=== PATIENT | male | born 1975 | race Caucasian/White ===

== ENCOUNTER 2021-08-22 02:07 | Outpatient (CLI) | payer OTHER, SELFPAY ==
[2021-08-23 09:30] LABS: HBs Antibody, Quant >1000.0 mIU/mL (See Note); Hepatitis B Surface Ab Positive (See Note)
[2021-08-23 10:21] LABS: Hep B Core Antibody Negative (Negative)
[2021-08-23 11:02] LABS: Varicella IgG Antibody Positive (See Note)
[2021-08-23 11:06] LABS: Measles IgG Antibody Negative (See Note)
[2021-08-23 11:09] LABS: Mumps Antibody IgG Positive (See Note)
[2021-08-23 11:11] LABS: Rubella IgG Ab (UVM) Positive (See Note)
== END 2021-08-22 02:08 | disposition home or self-care (01) ==
LOC: LBO 02:07
PROVIDERS: Family Medicine; Visit Provider Nurse Practitioner Family
DX: Z28.9 Immunization not carried out for unspecified reason (principal); Z11.59 Encounter for screening for other viral diseases; Z01.84 Encounter for antibody response examination
CPT/HCPCS: 36415; 86704; 86706; 86787; 86735; 86762; 86765

== ENCOUNTER 2022-12-07 22:54 | Emergency (ER) | payer BC, SELFPAY ==
[2022-12-07 22:53] VITALS: BP 127/73; PULSE 69; RESP 16; TEMP 36.6; O2SAT 100
--- NOTE | 2022-12-07 23:19 | W.ED.GENAD ---
Discharge Plan Disposition Patient Disposition: Home Condition: Improving Discharge Details Clinical Impression: Viral gastroenteritis Primary Care Provider: Sedrick Syed ED Provider: To Carpenter Meds and New Rx's Prescriptions: New ondansetron HCl 4 mg tablet 4 mg PO Q8H 5 Days Qty: 15 0RF Continued epinephrine [EpiPen 2-Chris] 0.3 mg/0.3 mL auto-injector 0.3 mg IM ONCE Rx Instructions: as a single dose; may repeat once acyclovir 800 mg tablet 800 mg PO QID Qty: 28 0RF Rx Instructions: while awake; give 4 doses in 24 hours x 3 days at first sign of outbreak finasteride [Propecia] 1 mg tablet 1 mg PO DAILY Qty: 90 3RF Discharge Instructions Instructions: Gastroenteritis (ED) Discharge Data Discharge Physician: To Carpenter Medical Decision Making MDM: Summary: Patient presents to the emergency department complaining of nausea vomiting diarrhea he received IV fluids for he seems dehydrated Labs were obtained which shows elevation of the BUN to creatinine ratio hyponatremia signs of dehydration otherwise unremarkable. Data Review Analysis All the data on this patient was reviewed by me including laboratory and imaging studies as well as bedside studies performed by me Independent review of Studies Imaging Lab: Elevation of the BUN to creatinine ratio which shows dehydration and hyponatremia Risk Stratification: Patient with viral gastroenteritis received IV fluids and Zofran with much improvement Differential Diagnosis: 1. Viral gastroenteritis 2. Colitis 3. 4. 5. Consultants: Shared disposition: Patient feels better and will be discharged home on Zofran in the care of his he is to drink Gatorade and nondairy products Impression: Lab Data Lab results reviewed: Yes I reviewed the patient's lab results. HPI General Date/Time Provider Initiated Documentation: 12/07/22 23:19. HPI Narrative: Patient presents emergency department complaining of 6 hours of nausea vomiting and profuse watery diarrhea. States he cannot take nothing down. Denies abdominal pain Related Data Home Medications Medication Instructions Recorded Confirmed epinephrine 0.3 mg/0.3 mL 0.3 mg IM ONCE 08/29/21 10/15/22 injection, auto-injector (EpiPen 2-Chris) acyclovir 800 mg tablet 800 mg PO QID #28 tabs 09/05/21 10/15/22 finasteride 1 mg tablet (Propecia) 1 mg PO DAILY alopecia #90 tabs 05/11/22 10/15/22 ondansetron HCl 4 mg tablet 4 mg PO Q8H 5 days #15 tabs 12/08/22 Previous Rx's Medication Instructions Recorded acyclovir 800 mg tablet 800 mg PO QID #28 tabs 09/05/21 finasteride 1 mg tablet (Propecia) 1 mg PO DAILY alopecia #90 tabs 05/11/22 ondansetron HCl 4 mg tablet 4 mg PO Q8H 5 days #15 tabs 12/08/22 Allergies Allergy/AdvReac Type Severity Reaction Status Date / Time bee AdvReac Unknown Skin Rash Uncoded 10/15/22 15:02 General Stated Complaint: Nausea/Vomit/Diar OLGA: 3 Review of Systems Narrative: Review of Systems: Constitutional: No fevers, chills, sweats Eye: No recent visual problems ENT: No ear pain, nasal congestion, sore throat Respiratory: No shortness of breath, cough Cardiovascular: No Chest pain, palpitations, syncope Genitourinary: No hematuria Kenan/Lymph: Negative for bruising tendency, swollen lymph glands Endocrine: Negative for excessive thirst, excessive hunger Musculoskeletal: No back pain, neck pain, joint pain, muscle pain, decreased range of motion Integumentary: No rash, pruritus, abrasions Neurologic: Alert & oriented X 4 Psychiatric: No anxiety, depression PFSH All Active Problems (Updated 12/08/22 @ 00:27 by To Carpenter MD) Viral gastroenteritis (Acute) Alopecia (Chronic) 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 Social History Smoking/Tobacco Use Status: Never Second Hand Exposure: No Smoking risk assessment performed?: Yes Alcohol Intake: current Alcohol Intake frequency: a few times a month Alcohol type: beer Drug use: Never Substance use type: does not use Caregiver/Support person: No Household members: spouse and children Housing: house Communication Needs: None Pets and animals: Yes Pets and animals: cat(s) and dog(s) Sexually active: Yes Do you think of yourself as: straight/heterosexual Current gender identity: male What is your relationship status?: How often do you talk on the phone with friends or family?: three or more times per week How often do you get together with friends or relatives?: three or more times per week How often do you attend jewish or zoroastrian services?: 1-3 times per year Do you belong to any clubs or organized social groups?: yes Panel score (0-1 are the most socially isolated patients): 3 What type of physical activity do you participate in: bicycling, weight lifting, running and yoga Special kirsten needs: No Seatbelt use: always Helmet use: Yes Helmet use: always 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 Exam Narrative Exam Narrative: Exam; vitals signs as reported above normal Constitutional; In no acute distress, afebrile General: cooperative, healthy appearing, comfortable and no acute distress HEENT: Head: normal to inspection, no palpable skull fracture and normocephalic atraumatic dry mucous membranes Eyes: : appearance normal, both eyes and all related structures EOM intact bilaterally Pupils: PERRL : conjunctiva normal Direct ophthalmoscopy: normal light reflex, normal conjunctiva, normal visual acuity Ears: Normal TM, normal external canal Neck no JVD, supple non tender Neck: normal visual inspection, full ROM and no lymphadenopathy Chest: normal inspection of the chest Respiratory : normal respiratory effort and able to speak in complete sentences no wheezing no rales Cardio Rate: regular rate, rhythm: regular rhythm normal heart sounds S1 and S2 no murmurs, gallops, or rubs GI : normal to inspection, normal bowel sounds, soft, non tender, non distended, no organomegaly Back/Spine/ no CVA tenderness Thoracic/Lumbar Spine: no tenderness or deformities Skin no rashes or lesions Neuro: patient alert and no meningeal signs, Cranial Nerves: CN's II-XI intact bilaterally, Cognition: normal cognition, Speech: speech normal, Gait: normal gait, Depp tendon reflexes normal 2+ muscle strength 5/5 bilaterally Extremities, no edema, full range of motion, normal strength Course Vital Signs Vital signs: Vital Signs Temperature 36.6 C 09/01/23 22:53 Pulse 69 12/07/22 22:53 Respiratory Rate 16 12/07/22 22:53 Blood Pressure 127/73 12/07/22 22:53 Pulse Oximetry 100 12/07/22 22:53 Temperature 36.6 C 12/07/22 22:53 Temperature Source Oral 12/07/22 22:53 Pulse 69 12/07/22 22:53 Respiratory Rate 16 12/07/22 22:53 Respiratory Effort Normal 12/07/22 23:08 Blood Pressure 127/73 12/07/22 22:53 Pulse Oximetry 100 12/07/22 22:53 Oxygen Delivery Method Room Air 12/07/22 22:53 Oxygen Flow Rate 0 12/07/22 22:53 Pain Level 0 12/07/22 22:53 Vital Signs & Lab Results Vital Signs Most Recent Vital Signs: Most Recent Vital Signs Temp Pulse Resp BP Pulse Ox 36.6 C 69 16 127/73 100 12/07/22 22:53 12/07/22 22:53 12/07/22 22:53 12/07/22 22:53 12/07/22 22:53 Point of Care Results Nursing Point of Care Results: No Data to Display Lab Results 12/07/22 22:46 12/07/22 22:46 Blood Type / Crossmatch: No Data to Display Complete Blood Count: White Blood Count 9.34 10^3/uL (4.4-10.8) 12/07/22 22:46 Red Blood Count 5.60 10^6/uL (4.36-5.78) 12/07/22 22:46 Hemoglobin 16.5 g/dL (13.5-17.5) 12/07/22 22:46 Hematocrit 48.1 % (40.0-50.0) 12/07/22 22:46 Platelet Count 265 10^3/uL (130-400) 12/07/22 22:46 Complete Metabolic Panel: Sodium 131 mmol/L (136-145) L 12/07/22 22:46 Potassium 3.9 mmol/L (3.5-5.1) 12/07/22 22:46 Chloride 99 mmol/L (98-107) 12/07/22 22:46 Carbon Dioxide 25.0 mmol/L (21.0-32.0) 12/07/22 22:46 BUN 31 mg/dL (7-18) H 12/07/22 22:46 Creatinine 1.4 mg/dL (0.70-1.30) H 12/07/22 22:46 Est GFR (CKD-EPI 2020) 62.39 (mL/min/1.73m2) 12/07/22 22:46 Calcium 10.0 mg/dL (8.5-10.1) 12/07/22 22:46 Albumin 4.3 g/dL (3.4-5.0) 12/07/22 22:46 Glucose 139 mg/dL (74-106) H 12/07/22 22:46 Liver Function Panel: Alanine Aminotransferase (ALT/SGPT) 57 U/L (16-63) 12/07/22 22:46 Aspartate Amino Transf (AST/SGOT) 43 U/L (15-37) H 12/07/22 22:46 Coagulation Panel: No Data to Display Cardiac Panel: No Data to Display Arterial Blood Gas: No Data to Display Venous Blood Gas: No Data to Display Pancreas Panel: Lipase 29 U/L (16-77) 12/07/22 22:46 Thyroid Panel: No Data to Display Infectious Disease: No Data to Display Blood Cultures: No Data to Display Toxicology Panel: No Data to Display
[2022-12-07] MEDS: Normal Saline 1,000 ML 1000 ML IV (23:32)
[2022-12-07] MEDS: Ondansetron 4 MG/2 ML VIAL IVP (23:32)
[2022-12-07] MEDS: MORPHine 4 MG/ML SYR IVP (23:32)
[2022-12-07 23:36] LABS: Abs Immature Grans 0.03 10^3/uL (0.0-0.06); Absolute Basophil Count 0.02 10^3/uL (0.0-0.2); Absolute Eosinophil Count 0.02 10^3/uL (0.0-0.7); Absolute Lymphocyte Count 0.51 10^3/uL (1.2-3.4); Absolute Monocyte Count 0.41 10^3/uL (0.1-0.8); Absolute Neutrophil Count 8.35 10^3/uL (1.2-6.7); Basophils % 0.2; Eosinophils % 0.2; HCT 48.1 % (40.0-50.0); HGB 16.5 g/dL (13.5-17.5); Immature Grans % 0.3; Lymphocytes % 5.5; MCH 29.5 pg (27.0-33.0); MCHC 34.3 % (32.0-36.0); MCV 86 fL (80-95); MPV 8.6 fL (8.0-11.0); Monocytes % 4.4; Neutrophils % 89.4; Platelet Count 265 10^3/uL (130-400); RDW 11.5 % (11.8-14.1); RDW-SD 35.8 fL; WBC 9.34 10^3/uL (4.4-10.8)
[2022-12-07 23:57] LABS: ALT 57 U/L (16-63); AST 43 U/L (15-37); Albumin 4.3 g/dL (3.4-5.0); Alkaline Phosphatase 71 U/L (46-116); BUN 31 mg/dL (7-18); Bilirubin, Total 0.9 mg/dL (0.2-1.0); CREATININE 1.4 mg/dL (0.70-1.30); Chloride 99 mmol/L (98-107); Estimated GFR 62.39 (mL/min/1.73m2); Glucose 139 mg/dL (74-106); Lipase 29 U/L (16-77); Potassium 3.9 mmol/L (3.5-5.1); Sodium 131 mmol/L (136-145); Total Protein 7.7 g/dL (6.4-8.2)
[2022-12-08 00:48] VITALS: BP 140/75; PULSE 82; RESP 16; O2SAT 99
--- NOTE | 2022-12-08 00:48 | NUR.NOTE ---
Nursing Note: Pt provided soren ellyn for PO challenge. Pt states he is still nausous but is able to hold fluids down. notified.
[2022-12-08] MEDS: Ondansetron O.D.T. 4 MG TABEF PO ×2 (00:57)
== END 2022-12-08 01:02 | disposition home or self-care (01) ==
PROVIDERS: Emergency Provider Emergency Medicine Emergency Medical Services; PCP Nurse Practitioner Family
DX: A08.4 Viral intestinal infection, unspecified (principal)
CPT/HCPCS: 36415; 80053; 83690; 96361; 96374; 96375; 99284; 85025; J2270; J2405

== ENCOUNTER 2023-08-20 11:00 | Outpatient (CLI) | payer BC, SELFPAY ==
--- NOTE | 2023-08-20 10:00 | DI.RAD_ITS ---
Exam(s) XR SHOULDER RT COMPLETE 2+V EXAM: XR SHOULDER RT COMPLETE 2+V CLINICAL HISTORY: RIGHT SHOULDER PAIN. TECHNIQUE: 2D digital imaging was performed. COMPARISON: CR RIGHT SHOULDER COMPLETE from 01/17/2015 FINDINGS: Two views No evidence of fracture or dislocation nor abnormal soft tissue calcifications. No joint space narro wing in the glenohumeral joint. Moderate degenerative changes are evident in the AC joint. No calci fications in non diminished subacromial space. Bone density normal. No osseous lesions. IMPRESSION: As above. DATA REPOSITORY: RADIATION DOSE DELIVERED:
== END 2023-08-20 11:01 | disposition home or self-care (01) ==
LOC: DIORS 11:00
PROVIDERS: PCP Nurse Practitioner Family; Visit Provider Student in an Organized Health Care Education/Training Program
DX: M25.511 Pain in right shoulder (principal)
CPT/HCPCS: 73030

== ENCOUNTER → 2023-09-06 00:05 | Outpatient (CLI) | payer BC, SELFPAY ==
--- NOTE | 2023-09-06 07:00 | DI.MRI_ITS ---
Exam(s) MR UPPER JOINT RT WO EXAM: MR UPPER JOINT RT WO CLINICAL HISTORY: R SHOULDER PAIN, rt rotator cuff tear, M75.101. TECHNIQUE: Multiplanar multisequence MRI was performed. COMPARISON: Plain films 20 Aug 2023 FINDINGS: BONES: There is no fracture or contusion pattern. Degenerative cyst in superior humeral head. JOINTS:The acromioclavicular joint shows inferior spurring. Spurring at the tip of the acromion. Th e glenohumeral joint is normal. TENDONS: Supraspinatus: High signal the fibers of the stent sec response tendon focal tear anteriorly and dist ally. Infraspinatus: Unremarkable. Subscapularis: Unremarkable. Teres Minor: Unremarkable. Biceps and Eustace: Unremarkable. MUSCLES: Unremarkable. GLENOID LABRUM: Unremarkable on this noncontrast examination. SOFT TISSUES: Unremarkable. OTHER: Subacromial and subdeltoid bursae shows a minimal amount of fluid.. Fluid in subcoracoid bursa. IMPRESSION: Partial tear of the anterior supraspinatus tendon. Degenerative changes with inferior spurring at th e AC joint and tip of the acromion. DATA REPOSITORY:
== END ==
PROVIDERS: PCP Nurse Practitioner Family; Visit Provider Student in an Organized Health Care Education/Training Program
DX: M75.111 Incomplete rotator cuff tear or rupture of right shoulder, not specified as traumatic (principal)
CPT/HCPCS: 73221

== ENCOUNTER 2024-06-12 09:26 | Outpatient (CLI) | payer BC, SELFPAY ==
--- NOTE | 2024-06-12 09:15 | DI.RAD_ITS ---
Exam(s) XR ELBOW RT COMPLETE EXAM: XR ELBOW RT COMPLETE CLINICAL HISTORY: no improvement with PT, isidoro elbow joint pain, M25.521, M25.522. TECHNIQUE: 2D digital imaging was performed. Three views. COMPARISON: CR XR ELBOW LT COMPLETE from 06/12/2024 FINDINGS: BONES: No acute fracture is present. No bony destructive lesion is seen. Other small ossicle adjacen t to the medial epicondyle. JOINTS: The elbow is normally aligned. No joint effusion is seen. The joint spaces are maintained. There is mild periarticular spurring. SOFT TISSUE: Normal. IMPRESSION: Minimal degenerative changes. DATA REPOSITORY: RADIATION DOSE DELIVERED:
--- NOTE | 2024-06-12 09:15 | DI.RAD_ITS ---
Exam(s) XR ELBOW LT COMPLETE EXAM: XR ELBOW LT COMPLETE CLINICAL HISTORY: no improvement with PT, isidoro elbow joint pain, M25.521, M25.522. TECHNIQUE: 2D digital imaging was performed. Three views. COMPARISON: CR XR ELBOW RT COMPLETE from 06/12/2024 FINDINGS: BONES: No acute fracture is present. No bony destructive lesion is seen. JOINTS: The elbow is normally aligned. No joint effusion is seen. Minimal periarticular spurring. Joint spaces are maintained. SOFT TISSUE: Normal. IMPRESSION: Mild degenerative changes. DATA REPOSITORY: RADIATION DOSE DELIVERED:
== END 2024-06-12 09:46 ==
LOC: DI 09:30
PROVIDERS: PCP Nurse Practitioner Family; Visit Provider Nurse Practitioner Family
DX: M25.521 Pain in right elbow (principal); M25.522 Pain in left elbow
CPT/HCPCS: 73080

== ENCOUNTER 2024-12-07 14:08 | Inpatient (IN) | payer BC, SELFPAY ==
[2024-12-07] VITALS (44 sets, daily range): BP systolic 102–149; BP diastolic 57–87; PULSE 50–78; RESP 10–22; TEMP 36.7–37.1; O2SAT 86–100
--- NOTE | 2024-12-07 14:00 | DI.CT_ITS ---
Exam(s) CT THORACIC LUMBAR SPINE REC CT THORAX ABD/PEL CTA EXAM: CT THORAX ABD/PEL CTA CLINICAL HISTORY: Trauma. TECHNIQUE: Imaging Protocol: Axial CT angiography was performed with multi- slice acquisition and multi-planar and/or 3D reconstructions. Lung Computer Aided Detection (CAD) was utilized. CONTRAST MATERIAL: Intravenous: Omnipaque 350 contrast volume:100 mL Oral: No COMPARISON: CT CT THORACIC LUMBAR SPINE REC from 12/07/2024 FINDINGS: CHEST: Tracheobronchial tree: Patent where visualized. There is no evidence of bronchiectasis. Pulmonary parenchyma: There is dependent atelectasis in both lower lobes and the lingula. No architectural distortion. Pulmonary Arteries: No evidence of filling defect to suggest pulmonary emboli. Mediastinum and Kristina: No dominant adenopathy or fluid collection. The esophagus is unremarkable. Visualized thyroid: Unremarkable. Pleura: There is a small left pleural effusion. There is no right pleural effusion. There is a small to moderate-sized left pneumothorax. There is no right pneumothorax. Heart: The heart is not dilated. No coronary artery calcifications are seen. No pericardial effusion. Aorta: The ascending thoracic aorta measures 4.3 x 4.2 cm. Soft Tissues: There is subcutaneous air along the left chest wall. Bones: There is a comminuted displaced fracture of the midshaft of the left clavicle. There is a nondisplaced fracture of the posterior aspect of the left 1st rib. There are mildly displaced fractures involving the posterolateral aspects of the 4th, 5th and 6th ribs. Thoracic spine recons: Age-appropriate degenerative changes are seen in the thoracic spine.There are no acute fractures or subluxations. Lumbar spine recons: Age-appropriate degenerative changes are seen in the lumbar spine. No acute fractures or subluxations are present. ABDOMEN AND PELVIS: Abdomen: Celiac axis/mesenteric arteries: No evidence of occlusion or significant stenosis. Renal Arteries: No evidence of occlusion or significant stenosis. There is a single renal artery perfusing each kidney. Aorta: No evidence of occlusion or significant stenosis. No aneurysm or dissection. Pelvis: Iliac Arteries: No evidence of occlusion or significant stenosis. Common Femoral Arteries: No evidence of occlusion or significant stenosis. ABDOMEN: Liver: Normal density. No measurable mass. Portal, superior mesenteric and splenic veins: Unremarkable. Gallbladder and Biliary Tract: No radiodense calculus or dilation. Pancreas: Normal density, no abnormal calcifications or inflammatory process. Spleen: Normal. Adrenals: No masses seen. Kidneys: Normal size, contour and axis. There is no obstructive uropathy. No masses seen. Bowel: No obstruction or bowel wall thickening. There is no evidence to suggest appendicitis. Peritoneal Cavity: No ascites, collection or mesenteric inflammatory response. No free air. Lymph Nodes: Within normal limits. Bones: Within normal limits for the patient's age. Soft Tissues: Unremarkable. PELVIS: Bladder: Symmetric distention, no gross wall thickening. Reproductive Organs: Unremarkable as visualized. Lymph Nodes: Within normal limits. Bones: Within normal limits for the patient's age. IMPRESSION: 1. Multiple left rib fractures some of which are displaced. Comminuted displaced fracture of the midshaft of the left clavicle. 2. Small to moderate left pneumothorax. 3. Small left pleural effusion. 4. Atelectatic changes seen in both lower lobes in the left lingula. 5. No acute fracture or subluxations are seen in the thoracic or lumbar spine. 6. No acute abdominal or pelvic organ injury. 7. Ascending thoracic aorta measures 4.3 x 4.2 cm. There is no evidence of dissection. 8. There is no evidence of a pulmonary embolism. 9. No evidence of abdominal aortic aneurysm or dissection. 10. The preliminary [facility] report was reviewed. RADIATION DOSE DELIVERED: 1,636.95mGy.cm Total DLP DATA REPOSITORY: All CT scans at this facility are submitted to the National Radiology Data Registry (NRDR) Dose Index Registry (DIR) with the [employer] ([employer]). RADIATION OPTIMIZATION: All CT scans at this facility use at least one of these dose optimization techniques: automated exposure control; mA and/or kV adjustment per patient size (includes targeted exams where dose is matched to clinical indication); or iterative reconstruction.
--- NOTE | 2024-12-07 14:00 | DI.CT_ITS ---
Exam(s) CT HEAD CERVICAL SPINE WO EXAM: CT HEAD CERVICAL SPINE WO CLINICAL HISTORY: Trauma. TECHNIQUE: Imaging Protocol: Axial computed tomography images with coronal and sagittal reformatted images were created and reviewed COMPARISON: No exams were available for comparison FINDINGS: CT Head: Ventricles and Extra axial spaces: Normal in size and morphology for the patient's age. Hemorrhage: None. Cerebral parenchyma: Normal. Midline shift: None. Brainstem/Cerebellum: Normal. Calvarium: Normal. Visualized Paranasal sinuses/Mastoids: Clear. Soft Tissues: There are several tiny radiodensities in the subcutaneous tissues of the scalp. These may reflect foreign bodies. CT Cervical Spine: Bones: There is a nondisplaced fracture of the posterior aspect of the left 1st rib. Age-appropriate degenerative changes are seen in the spine. Soft Tissues: Unremarkable. Lung Apices: There is an apical pneumothorax present. Subcutaneous emphysema is seen in the posterior soft tissues of the chest. IMPRESSION: 1. No acute intracranial process. 2. No acute fracture or subluxation in the cervical spine. 3. Left 1st rib fracture. 4. Left apical pneumothorax. 5. Radiopaque densities in the subcutaneous tissues in the scalp which may reflect foreign bodies. Please correlate with physical exam. 6. The preliminary [facility] report was reviewed. RADIATION DOSE DELIVERED: 1,530.05mGy.cm Total DLP DATA REPOSITORY: All CT scans at this facility are submitted to the National Radiology Data Registry (NRDR) Dose Index Registry (DIR) with the [employer] ([employer]). RADIATION OPTIMIZATION: All CT scans at this facility use at least one of these dose optimization techniques: automated exposure control; mA and/or kV adjustment per patient size (includes targeted exams where dose is matched to clinical indication); or iterative reconstruction.
--- NOTE | 2024-12-07 14:15 | DI.RAD_ITS ---
Exam(s) XR SHOULDER LT COMPLETE 2+V XR CLAVICLE LT EXAM: XR CLAVICLE LT and XR shoulder LT complete CLINICAL HISTORY: Trauma TECHNIQUE: 2D digital imaging was performed of the left shoulder and clavicle. Six images were obtained. AP, Grashey, Y and axial views were obtained. COMPARISON: CR,XR XR SHOULDER LT COMPLETE 2+V from 12/07/2024 FINDINGS: BONES: There is an acute mildly displaced comminuted fracture of the midshaft of the left clavicle. There are mildly displaced fractures involving the lateral aspects of the left 4th, 5th and 6th ribs. No bony destructive lesion is seen. JOINTS: No dislocation present. The acromioclavicular and glenohumeral joints are intact. There are mild degenerative changes seen at the acromioclavicular joint. SOFT TISSUE: There is a small amount of subcutaneous air along the left chest wall. IMPRESSION: 1. Comminuted mildly displaced fracture of the midshaft of the left clavicle. 2. Mildly displaced fractures involving the lateral aspects of the 4th, 5th and 6th ribs. 3. Small amount of subcutaneous emphysema along the left chest wall. 4. The preliminary [facility] report was reviewed. DATA REPOSITORY: RADIATION DOSE DELIVERED:
--- NOTE | 2024-12-07 14:15 | DI.RAD_ITS ---
Exam(s) XR PORTABLE CHEST AP EXAM: XR PORTABLE CHEST AP CLINICAL HISTORY: trauma TECHNIQUE: 2D digital imaging was performed of the chest. One image was obtained. An AP view was obtained. COMPARISON: No exams were available for comparison FINDINGS: MEDIASTINUM: Normal. HEART: Normal. PULMONARY VASCULATURE: Normal. LUNGS: Clear. PLEURAL SPACE: There is no pleural effusion. There is no right pneumothorax. There is subcutaneous air along the left lateral chest wall adjacent to the rib fractures. The findings are concerning for a in left pneumothorax. No pneumothorax is visualized on this examination but is CT scan of the chest is recommended for further evaluation. There is an opacity in the right lung base. The left lung is clear. BONE:Within normal limits for the patient's age. There is a comminuted mildly displaced fracture involving the midshaft of the left clavicle. There are fractures involving the lateral aspects of the 3rd through 6th left ribs. OTHER FINDINGS:Normal. IMPRESSION: 1. Comminuted mildly displaced left mid clavicular fracture. 2. Mildly displaced fractures involving the left 3rd through 6th ribs. 3. Subcutaneous air along the left chest wall. This in conjunction with the rib fractures are suspicious for a in pneumothorax. No discernible pneumothorax is seen on this examination, however a CT scan is recommended for further evaluation. A very small pneumothorax cannot be excluded. 4. Left basilar opacity. This may represent a pulmonary contusion or atelectasis. DATA REPOSITORY: RADIATION DOSE DELIVERED:
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
[2024-12-07] MEDS: HYDROmorphone 2 MG/ML SYR 1 MG IVP ×3 (14:23→19:59)
[2024-12-07 14:27] LABS: Abs Immature Grans 0.03 10^3/uL (0.0-0.06); HCT 42.0 % (40.0-50.0); HGB 14.2 g/dL (13.5-17.5); Immature Grans % 0.4 %; MCH 29.3 pg (27.0-33.0); MCHC 33.8 % (32.0-36.0); MCV 87 fL (80-95); MPV 8.2 fL (8.0-11.0); Platelet Count 224 10^3/uL (130-400); RBC 4.84 10^6/uL (4.36-5.78); RDW 11.5 % (11.8-14.1); RDW-SD 36.5 fL; WBC 7.54 10^3/uL (4.4-10.8)
[2024-12-07 14:41] LABS: INR 1.1 (0.9-1.1); PTT Activated 22.5 sec (20.6-30.2); Prothrombin Time 10.7 sec (9.1-11.1)
[2024-12-07 14:43] LABS: ALT 53 U/L (16-63); AST 42 U/L (15-37); Albumin 4.0 g/dL (3.4-5.0); Alkaline Phosphatase 71 U/L (46-116); Anion Gap 7.1 mmol/L (3-11); BUN 24 mg/dL (7-18); Bilirubin, Total 0.6 mg/dL (0.2-1.0); CO2 30.9 mmol/L (21.0-32.0); Calcium 9.4 mg/dL (8.5-10.1); Chloride 103 mmol/L (98-107); Estimated GFR 56.72 (mL/min/1.73m2); Glucose 138 mg/dL (74-106); Lipase 28 U/L (<78); Potassium 4.0 mmol/L (3.5-5.1); Sodium 141 mmol/L (136-145); Total Protein 7.1 g/dL (6.4-8.2)
[2024-12-07] MEDS: Normal Saline Flush 10 ML SYR IVP ×2 (14:57→21:41)
[2024-12-07] MEDS: Normal Saline - Diluent 50 ML VIAL IJ (14:58)
[2024-12-07] MEDS: Omnipaque 350 MG/ML 100 ML BTL IJ (14:58)
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
--- NOTE | 2024-12-07 16:30 | DI.RAD_ITS ---
Exam(s) XR PORTABLE CHEST AP EXAM: XR PORTABLE CHEST AP CLINICAL HISTORY: Reassess pneumothorax TECHNIQUE: 2D digital imaging was performed. COMPARISON: CT CT THORAX ABD/PEL CTA from 12/07/2024 CR XR PORTABLE CHEST AP from 12/07/2024 FINDINGS: LUNGS: Small left apical pneumothorax is appears have slightly increased when compared with the previous exam. Left basilar densities, likely atelectasis. Lungs are not well inflated. HEART: Heart side magnified by technique and lack of inspiration. AORTA: Normal diameter. BONES: Multiple left lateral rib fractures. Soft tissues: Unremarkable air outside the left chest wall. Overlying monitoring leads. IMPRESSION: Slight interval increase in size of left apical pneumothorax. Multiple left rib fractures. Left basilar atelectasis. The preliminary [facility] report was reviewed. DATA REPOSITORY: RADIATION DOSE DELIVERED:
[2024-12-07] MEDS: Normal Saline 1,000 ML 1000 ML IV (16:34)
[2024-12-07] MEDS: ACETAMINOPHEN 1,000 MG/100 ML BAG 400 MG IVPB (16:59)
[2024-12-07] MEDS: Ketorolac 15 MG/ML VIAL IVP (17:00)
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
[2024-12-07] MEDS: Enoxaparin 40 MG/0.4 ML SYR SC (19:59)
[2024-12-07] MEDS: Docusate Sodium 100 MG CAP PO (19:59)
[2024-12-07 22:12] LABS: Glucose Negative (Negative)
[2024-12-08] VITALS (7 sets, daily range): BP systolic 108–132; BP diastolic 71–85; PULSE 52–57; RESP 16–20; TEMP 36–36.7; O2SAT 96–100
[2024-12-08] MEDS: MORPHine 2 MG/ML SYR IVP ×3 (03:42→12:44)
--- NOTE | 2024-12-08 05:30 | DI.RAD_ITS ---
Exam(s) XR PORTABLE CHEST AP EXAM: XR PORTABLE CHEST AP CLINICAL HISTORY: follow up left pneumothorax TECHNIQUE: 2D digital imaging was performed. COMPARISON: CR,XR XR PORTABLE CHEST AP from 12/07/2024 CR XR PORTABLE CHEST AP from 12/07/2024 FINDINGS: LUNGS: Small left apical pneumothorax which has increased slightly in size when compared the previous exam. Mild left basilar atelectasis.. HEART: Normal size. AORTA: Normal diameter. BONES: Multiple left rib fractures again noted Soft tissues: Small amount of air seen outside the left chest wall. IMPRESSION: Mild interval increase in size of left apical pneumothorax. DATA REPOSITORY: RADIATION DOSE DELIVERED:
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
[2024-12-08 06:48] LABS: HCT 40.1 % (40.0-50.0); HGB 13.5 g/dL (13.5-17.5); MCH 29.6 pg (27.0-33.0); MCHC 33.7 % (32.0-36.0); MCV 88 fL (80-95); MPV 8.3 fL (8.0-11.0); Platelet Count 198 10^3/uL (130-400); RBC 4.56 10^6/uL (4.36-5.78); RDW 11.7 % (11.8-14.1); RDW-SD 37.3 fL; WBC 7.59 10^3/uL (4.4-10.8)
[2024-12-08 07:04] LABS: Anion Gap 4.5 mmol/L (3-11); BUN 21 mg/dL (7-18); CO2 30.5 mmol/L (21.0-32.0); Calcium 8.9 mg/dL (8.5-10.1); Chloride 104 mmol/L (98-107); Estimated GFR 82.29 (mL/min/1.73m2); Glucose 93 mg/dL (74-106); Magnesium 2.0 mg/dL (1.8-2.4); Potassium 3.8 mmol/L (3.5-5.1); Sodium 139 mmol/L (136-145)
[2024-12-08] MEDS: Normal Saline Flush 10 ML SYR IVP ×2 (07:25→20:38)
[2024-12-08] MEDS: Ondansetron 4 MG/2 ML VIAL IVP (07:25)
--- NOTE | 2024-12-08 07:32 | DI.VRAD_ITS ---
PROCEDURE INFORMATION: Exam: XR Chest Exam date and time: 12/08/2024 7:25 AM Age: 49 years old Clinical indication: Condition or disease; Lung condition and disease; Pneumothorax; F/u trauma - pneumo TECHNIQUE: Imaging protocol: Radiologic exam of the chest. Views: 1 view. COMPARISON: CR XR PORTABLE CHEST AP 12/07/2024 5:08 PM FINDINGS: Lungs: No focal consolidation seen. Pleural spaces: Slightly increased left apical pneumothorax. Heart/Mediastinum: Cardiac silhouette magnified by AP technique. Bones/joints: Multiple left rib fractures. IMPRESSION: Slightly increased left apical pneumothorax. Dictated and Authenticated by: Linette Glass MD. Orderin Brigdet Rockwell MD
[2024-12-08] MEDS: Ibuprofen 800 MG TAB PO ×2 (09:09→16:13)
[2024-12-08] MEDS: HYDROcodone 5/Acetaminophen 325 TAB PO ×3 (09:09→20:37)
[2024-12-08] MEDS: Docusate Sodium 100 MG CAP PO ×2 (09:09→20:37)
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
--- NOTE | 2024-12-08 13:15 | DI.RAD_ITS ---
Exam(s) XR CLAVICLE LT EXAM: XR CLAVICLE LT CLINICAL HISTORY: f/u Lt clavicle fx TECHNIQUE: 2D digital imaging was performed. Two views COMPARISON: CR,XR XR CLAVICLE LT from 12/07/2024 CR,XR XR SHOULDER LT COMPLETE 2+V from 12/07/2024 CR,XR XR PORTABLE CHEST AP from 12/08/2024 FINDINGS: BONES: Comminuted fracture of the mid to distal clavicle now with overriding of fracture fragments, with increased displacement compared with the previous exam. Left upper rib fractures are visible. No bony destructive lesion is seen. JOINTS: AC joint not widened. SOFT TISSUE: There is a small left apical pneumothorax. IMPRESSION: Increased displacement of mid to distal comminuted clavicle fracture. DATA REPOSITORY: RADIATION DOSE DELIVERED:
--- NOTE | 2024-12-08 14:38 | PGE_ITS ---
Date of Service Date of service: 12/08/24 Time of Service: 14:38 Assessment and Plan Assessment and plan (1) Pneumothorax, left: Status: Acute Assessment and plan: There has been a little bit of progression of the pneumothorax on the left side, although the quality of this x-ray is improved compared to previous, and he has been upright for a little bit longer. We will plan to repeat another chest x- ray tomorrow. I will consult the anesthesia service to see if there is any role for rib blocks to help with his pain. Will continue to trend to spirometry effort. Reassess the knee over the next few hours, and if necessary, we can get formal films tomorrow during his chest x-ray. Subjective Subjective Interval history since last seen: Raul says he is doing okay this afternoon. He has had some increased pain since he has been up out of bed, but he denies any significant dyspnea. He is only getting about 1000 mL on the spirometer, and this is limited by pain. Cough is weak. He has noted a little bit of pain on the left knee since he has been up and bearing weight on it. Exam Chest Other: Lung sounds are clear bilaterally, although the inspiratory effort is limited. There are no wheezes. I do not appreciate any significant subcutaneous emphysema. Extrem Other: Left knee is a little bit tender at the patella, but range of motion is normal. I do not appreciate an effusion on exam. Objective Last Vital Signs Temp 97.2 F L 12/08/24 11:15 Pulse 57 L 12/08/24 11:15 Resp 20 12/08/24 11:15 BP 115/73 12/08/24 11:15 Pulse Ox 96 12/08/24 11:15 Laboratory Results - last 24 hr 12/07/24 12/07/24 12/08/24 14:15 21:50 06:33 WBC 7.59 RBC 4.56 Hgb 13.5 Hct 40.1 MCV 88 MCH 29.6 MCHC 33.7 RDW 11.7 L Plt Count 198 MPV 8.3 PT 10.7 INR 1.1 APTT 22.5 Sodium 141 139 Potassium 4.0 3.8 Chloride 103 104 Carbon Dioxide 30.9 30.5 Anion Gap 7.1 4.5 BUN 24 H 21 H Creatinine 1.5 H 1.1 Est GFR (CKD-EPI 2021) 56.72 82.29 Glucose 138 H 93 Calcium 9.4 8.9 Magnesium 2.0 Total Bilirubin 0.6 AST 42 H ALT 53 Alkaline Phosphatase 71 Total Protein 7.1 Albumin 4.0 Lipase 28 Urine Color Yellow Urine Clarity Clear Urine pH 5.5 Ur Specific [place] 1.025 Urine Protein Negative Urine Ketones 15 H Urine Blood Negative Urine Nitrite Negative Urine Bilirubin Negative Urine Urobilinogen 0.2 Ur Leukocyte Esterase Negative Urine Glucose Negative ABO/Rh O Positive Antibody Screen NEGATIVE PAWSS Have you Been Recently Intoxicated or Drunk Within the Last 30 days?: No Have you Ever Experienced Previous Episodes of Alcohol Withdrawal?: No Have you ever Experienced Withdrawal Seizures?: No Have you ever Experienced Delirium Tremens(DT)s?: No Have you ever undergone Alcohol Rehabilitation Treatment (i.e, inpt ot outpatient treatment programs)?: No Have you ever Experienced Blackouts?: No Have you ever Combined Alcohol with other Downers within the last 90 days?: No Have you ever Combined Alcohol with any other Substance of Abuse during the last 90 days?: No Positive Blood Alcohol level on Presentation? [PCS.BAL]: No Evidence of Increased Autonomic Activity (i.e. HR>120, tremor, sweating, agitation, nausea)?: No Result: 0 Time Spent with Patient Time Spent with Patient: 35-49 minutes Time was spent: preparing to see the patient(eg.review tests), referring, communicating with other health career services assistant, indepentently interpreting results, counseling the patient and care coordination
--- NOTE | 2024-12-08 14:50 | W.ANESNERVE ---
Nerve Block Single Injection Procedure Date and Time Date Performed: 12/08/24 Procedure Start: 14:30 Location Where Procedure Performed Procedure Location: Med/Surg Reason Performed: Acute Pain Management Pain Diagnosis: Rib Pain (difficulty with inspiration/expiration/coughing/IS usage. ) Requesting Provider: Prateek Banks Timeout Performed Timeout Performed: Yes Monitoring Used ECG, Blood Pressure and SpO2 Sterility Sterility: Hand Hygiene, Surgical Cap, Surgical Mask, Sterile Gloves and Chlorhexidine Sedation Given During Procedure Sedation Given (Indicate Dose Given): No Sedation given Patient Mental Status Patient Mental Status: Awake Nerve Block 1st Nerve Block: Laterality: Left Block Type: Erector Spinae (Upper) Ultrasound Image Saved?: Yes Needle / Catheter Used: 100mm SonoPlex II Local Anesthetic Bolus (Indicate Dose Given): Lidocaine used for local infiltration of skin, Injected in 3-5ml increments after negative blood aspiration, Bupivacaine 0.25% Dose:: 20 mL and Exparel Dose:: 20 mL Additives (Indicate Dose Given): None Ultrasound: Sterile probe cover and gel used Nerve Stimulator: Not Used Paresthesia: None Procedure Tolerated: No Complications Procedure Outcome: Successful Procedure Comment: Discussed risks, benefits of regional anesthesia. No contraindications noted. Plan for RICA block. Performed By: Andrea King
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
[2024-12-08] MEDS: Enoxaparin 40 MG/0.4 ML SYR SC (20:38)
--- NOTE | 2024-12-09 | DI.RAD_ITS ---
Exam(s) XR KNEE LT 1V EXAM: XR KNEE LT 1V CLINICAL HISTORY: possible patella fx. TECHNIQUE: 2D digital imaging was performed of the left knee. One images were obtained. Merchant, views were obtained. COMPARISON: CR XR KNEE LT 2V AP,LAT from 12/09/2024 FINDINGS: BONES: Findings are most consistent with a nondisplaced fracture of the lateral aspect of the patella. IMPRESSION: Findings consistent with a nondisplaced fracture of the lateral patella. DATA REPOSITORY: RADIATION DOSE DELIVERED:
[2024-12-09 03:12] VITALS: BP 107/69; PULSE 58; RESP 16; TEMP 36; O2SAT 97
[2024-12-09] MEDS: HYDROcodone 5/Acetaminophen 325 TAB PO ×4 (03:31→22:39)
[2024-12-09 08:02] VITALS: BP 105/68; PULSE 55; RESP 19; TEMP 36.3; O2SAT 98
[2024-12-09] MEDS: Docusate Sodium 100 MG CAP PO ×2 (08:04→21:09)
[2024-12-09] MEDS: Ibuprofen 800 MG TAB PO ×3 (08:04→21:08)
[2024-12-09] MEDS: Normal Saline Flush 10 ML SYR IVP ×2 (08:05→21:08)
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
--- NOTE | 2024-12-09 08:44 | DI.RAD_ITS ---
Exam(s) XR KNEE LT 2V AP,LAT EXAM: XR KNEE LT 2V AP,LAT CLINICAL HISTORY: Knee pain. TECHNIQUE: 2D digital imaging was performed of the left knee. Two images were obtained. AP and lateral views were obtained. COMPARISON: No exams were available for comparison FINDINGS: BONES: No acute fracture is present. No bony destructive lesion is seen. There is a curvilinear lucency at the lateral aspect of the patella suspicious for a bipartite patella. Acute fracture cannot be excluded. Please correlate with patient's clinical history. There is no associated soft tissue swelling. JOINTS: The knee is normally aligned. There is a small joint effusion. No loose body. SOFT TISSUE: Normal. IMPRESSION: 1. Curvilinear lucency through the lateral aspect of the patella. This may represent a bipartite patella. Please correlate with patient's clinical history to exclude an acute fracture. If further imaging is warranted, a CT scan may be obtained. 2. Small joint effusion. DATA REPOSITORY: RADIATION DOSE DELIVERED:
--- NOTE | 2024-12-09 08:44 | DI.RAD_ITS ---
Exam(s) XR CHEST 2V PA LATERAL EXAM: XR CHEST 2V PA LATERAL CLINICAL HISTORY: right pneumothorax TECHNIQUE: 2D digital imaging was performed of the chest. Two images were obtained. PA and lateral views were obtained. COMPARISON: CR XR PORTABLE CHEST AP from 12/07/2024 CR,XR XR PORTABLE CHEST AP from 12/07/2024 CR,XR XR PORTABLE CHEST AP from 12/08/2024 FINDINGS: MEDIASTINUM: Normal. HEART: Normal. PULMONARY VASCULATURE: Normal. LUNGS: There is atelectasis seen in the left lower lobe. The right lung appears clear. PLEURAL SPACE: There is a persistent left apical pneumothorax which appears stable in size. There is no right pneumothorax. Tiny bilateral pleural effusions are seen. BONE:Within normal limits for the patient's age. There is no change in alignment of the comminuted fracture of the midshaft of the left clavicle. The left rib fractures appear stable. OTHER FINDINGS:There is a small amount of subcutaneous air along the left lateral chest wall. IMPRESSION: 1. Stable small left apical pneumothorax. 2. Left lower lobe opacity which may represent atelectasis. 3. Stable left clavicular and left rib fractures. DATA REPOSITORY: RADIATION DOSE DELIVERED:
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
--- NOTE | 2024-12-09 12:25 | W.PM.PROGNOT ---
Date of Service Date of service: 12/09/24 Time of Service: 12:27 Assessment and Plan Assessment and plan (1) Closed traumatic fracture of ribs of left side with pneumothorax: Status: Acute Assessment and plan: Clavicle fracture displaced now, ortho plans fixation tomorrow or saturday. In regard to the PTX it is stable in size and proceeding with positive pressure vent for clavicle repair is okay. Risk of worsening phemothorax is low, and tube can be placed intraoperatively if hypoxia occurs. Plan CXR in AM and again post op. L knee swelling and pain, XR reviewed, will touch base with ortho regarding opinion on whether or not there is a hairline fracture there. manage conservatively. Analgesia for rib fractures and clavicle fracture adequate. Continue PT lovenox dvt ppx. (2) Closed left clavicular fracture: Status: Acute (3) Fracture of left first rib: Status: Acute (4) Fracture of left fifth rib: Status: Acute (5) Fracture of left sixth rib: Status: Acute (6) Fracture of left fourth rib: Status: Acute (7) Left knee pain: Status: Acute Subjective Subjective Interval history since last seen: Pt feeling better overall. L knee feels sore and swollen, difficult to walk on but still able to walk. Breathing easy. No concerns about concussion, says he has had concussions before and doesnt feel like he has one. no dizziness or confusion, no headache or cloudiness. no dyspnea. We discussed xrays and plans. Exam Narrative Exam Narrative: awake, NAD upright in chair O2 in place by nc normal resp effort midline trachea L arm in sling Objective Last Vital Signs Temp 97.3 F L 12/09/24 08:02 Pulse 55 L 12/09/24 08:02 Resp 19 12/09/24 08:02 BP 105/68 12/09/24 08:02 Pulse Ox 98 12/09/24 08:02 Objective Narrative Objective Narrative: reviewed knee and CXR images and reports PAWSS Have you Been Recently Intoxicated or Drunk Within the Last 30 days?: No Have you Ever Experienced Previous Episodes of Alcohol Withdrawal?: No Have you ever Experienced Withdrawal Seizures?: No Have you ever Experienced Delirium Tremens(DT)s?: No Have you ever undergone Alcohol Rehabilitation Treatment (i.e, inpt ot outpatient treatment programs)?: No Have you ever Experienced Blackouts?: No Have you ever Combined Alcohol with other Downers within the last 90 days?: No Have you ever Combined Alcohol with any other Substance of Abuse during the last 90 days?: No Positive Blood Alcohol level on Presentation? [PCS.BAL]: No Evidence of Increased Autonomic Activity (i.e. HR>120, tremor, sweating, agitation, nausea)?: No Result: 0 Time Spent with Patient Time Spent with Patient: <25 minutes Time was spent: preparing to see the patient(eg.review tests), ordering medications,tests, procedures, referring, communicating with other health medicare sales executive, indepentently interpreting results and counseling the patient
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
[2024-12-09 16:32] VITALS: BP 121/77; PULSE 65; RESP 19; TEMP 36.5; O2SAT 95
[2024-12-09 19:15] VITALS: BP 119/87; PULSE 68; RESP 16; TEMP 36.6; O2SAT 96
[2024-12-09] MEDS: Enoxaparin 40 MG/0.4 ML SYR SC (21:09)
[2024-12-10 00:08] VITALS: BP 117/68; PULSE 59; RESP 16; TEMP 36.8; O2SAT 96
[2024-12-10 03:44] VITALS: BP 118/75; PULSE 51; RESP 16; TEMP 36.2; O2SAT 97
[2024-12-10 06:39] LABS: HCT 37.1 % (40.0-50.0); HGB 12.6 g/dL (13.5-17.5); MCH 29.9 pg (27.0-33.0); MCHC 34.0 % (32.0-36.0); MCV 88 fL (80-95); MPV 8.3 fL (8.0-11.0); Platelet Count 195 10^3/uL (130-400); RBC 4.22 10^6/uL (4.36-5.78); RDW 11.7 % (11.8-14.1); RDW-SD 37.3 fL; WBC 4.97 10^3/uL (4.4-10.8)
[2024-12-10 06:54] LABS: Anion Gap 3.4 mmol/L (3-11); BUN 19 mg/dL (7-18); CO2 29.6 mmol/L (21.0-32.0); Calcium 9.1 mg/dL (8.5-10.1); Chloride 106 mmol/L (98-107); Estimated GFR 82.29 (mL/min/1.73m2); Glucose 102 mg/dL (74-106); Potassium 4.1 mmol/L (3.5-5.1); Sodium 139 mmol/L (136-145)
[2024-12-10 07:54] VITALS: BP 97/65; PULSE 59; RESP 16; TEMP 36.1; O2SAT 98
--- NOTE | 2024-12-10 08:30 | DI.RAD_ITS ---
Exam(s) XR CHEST 2V PA LATERAL EXAM: XR CHEST 2V PA LATERAL CLINICAL HISTORY: follow up L pneumthorax and clavicle fracture TECHNIQUE: 2D digital imaging was performed. Two views. COMPARISON: CR XR CHEST 2V PA LATERAL from 12/09/2024 FINDINGS: The lateral view is limited due to patient arm positioning as well as poor inspiratory effort. HEART: Normal size. Aorta: Not dilated. PULMONARY VASCULATURE: Normal. MEDIASTINUM: Unremarkable. LUNGS: Left basilar atelectasis, unchanged. PLEURAL SPACE: There is slight improvement in the left apical pneumothorax. There are small bilateral pleural effusions. BONE:Unrema multiple left rib fractures. SOFT TISSUES: Unremarkable. IMPRESSION: Slight improvement in left apical pneumothorax. Persistent left lower lobe atelectasis and and small bilateral pleural effusions. DATA REPOSITORY: RADIATION DOSE DELIVERED:
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
[2024-12-10] MEDS: Ibuprofen 800 MG TAB PO ×3 (09:01→20:16)
[2024-12-10] MEDS: HYDROcodone 5/Acetaminophen 325 TAB PO ×2 (09:02→17:07)
[2024-12-10] MEDS: Docusate Sodium 100 MG CAP PO ×2 (09:02→20:16)
[2024-12-10] MEDS: Normal Saline Flush 10 ML SYR IVP ×2 (09:03→20:16)
[2024-12-10] MEDS: Polyethylene Glycol 3350 17 GM PACKET PO (09:14)
[2024-12-10] MEDS: Milk of Magnesia 30 ML CUP PO ×2 (09:14→20:16)
--- NOTE | 2024-12-10 09:48 | W.PM.PROGNOT ---
Date of Service Date of service: 12/10/24 Time of Service: 13:35 Assessment and Plan Assessment and plan (1) Closed left clavicular fracture: Status: Acute Assessment and plan: 49-year-old male with widely displaced left midshaft clavicle fracture Patient seen and evaluated. Obvious left clavicle deformity. Patient has had time to consider his options and is mated to surgical repair. No additional questions or concerns. Decision to proceed with surgery tomorrow 12/11/2024 Left clavicle ORIF. Repeat chest x-ray in the a.m. Increased risk of pneumothorax/tension pneumothorax, but improving pneumothorax relatively safe for for anesthesia at this time and will have general surgeons available if needed. Plan on postoperative chest x-ray. The risks, benefits, and alternatives were thoroughly discussed. Patient was counseled regarding pain management, expected postoperative course, and recovery timeline. All questions were answered. Informed consent was obtained. Patient agrees and understands the treatment plan Breathing challenging due to rib fractures on a small amount of supplemental oxygen nasal cannula. 2+ left radial pulse. Regular rate and rhythm. (2) Left patella fracture: Status: Acute Assessment and plan: Relatively small, transverse, and nondisplaced left lateral patella fracture- Stable. Correlates with area of swelling and tenderness. Should be relatively protected. Weightbearing as tolerated okay with assist device as needed. Has met with PT regarding this injury. Wearing hinged knee wrap/brace. Will continue to wear for support while ambulatory. Range of motion 0-90 degrees. Avoid deeper flexion. Expect healing in about 6 weeks. Surgery if displaces or becomes symptomatic nonunion. Objective Last Vital Signs Temp 97.0 F L 12/10/24 07:54 Pulse 59 L 12/10/24 07:54 Resp 16 12/10/24 07:54 BP 97/65 L 12/10/24 07:54 Pulse Ox 98 12/10/24 07:54 Laboratory Results - last 24 hr 12/10/24 06:20 WBC 4.97 RBC 4.22 L Hgb 12.6 L Hct 37.1 L MCV 88 MCH 29.9 MCHC 34.0 RDW 11.7 L Plt Count 195 MPV 8.3 Sodium 139 Potassium 4.1 Chloride 106 Carbon Dioxide 29.6 Anion Gap 3.4 BUN 19 H Creatinine 1.1 Est GFR (CKD-EPI 2020) 82.29 Glucose 102 Calcium 9.1 PAWSS Have you Been Recently Intoxicated or Drunk Within the Last 30 days?: No Have you Ever Experienced Previous Episodes of Alcohol Withdrawal?: No Have you ever Experienced Withdrawal Seizures?: No Have you ever Experienced Delirium Tremens(DT)s?: No Have you ever undergone Alcohol Rehabilitation Treatment (i.e, inpt ot outpatient treatment programs)?: No Have you ever Experienced Blackouts?: No Have you ever Combined Alcohol with other Downers within the last 90 days?: No Have you ever Combined Alcohol with any other Substance of Abuse during the last 90 days?: No Positive Blood Alcohol level on Presentation? [PCS.BAL]: No Evidence of Increased Autonomic Activity (i.e. HR>120, tremor, sweating, agitation, nausea)?: No Result: 0 Time Spent with Patient Time Spent with Patient: 25-34 minutes Time was spent: preparing to see the patient(eg.review tests), obtaining and/or reviewing separately otained hiistory, ordering medications,tests, procedures, referring, communicating with other health ocular care technician, indepentently interpreting results, counseling the patient and care coordination
--- NOTE | 2024-12-10 10:36 | PTTR_ITS ---
PT Notes Visit Reasons: Polytrauma Date: 12/10/2024 PRECAUTIONS: Sling to left upper extremity . Patient may utilize elbow and hand for tasks limit elevation of shoulder SUBJECTIVE: pt reports chest pain much more manageable after taking pain meds, agreed to participating with therapy after returning from shoulder and chest X- ray. OBJECTIVE: pt in recliner without sling and knee brace? VITALS: closely monitored by nursing ? Therapeutic Activities (01553o[]): Direct one-on-one instruction in dynamic activities to improve functional performance. ? BED MOBILITY/TRANSFERS? Rolling L/R: Independent Supine-sit: Independent? Sit-supine: Independent? Sit-stand: Independent ? Stand-sit: Independent? Bed-Chair: Independent? Chair-bed: Independent Provided skilled cues and instruction on performance and technique throughout. STAIRS: Full flight of stairs (12 steps up/down) step to gait pattern, 1handrail supervision ? Ambulation ? Assistive Device: No device ? Weight bearing: WBAT Assist: Supervision? Distance: 325 feet ? Deviation: Circumduction left lower extremity hip hike for clearance to keep knee in terminal knee extension Provided skilled instruction in proper exercise performance Provided skilled manual cues to facilitate proper muscle recruitment and/or form: [] ASSESSMENT: pt reports his knee is noit too bad with the knee brace, able to stay static standing 10mins weight shifting. PLAN: will be DC'd for the time being until after surgery as per primary PT. TREATMENT CODE/TIME: [id number] 25mins (10:05-10:30am) DISCHARGE RECOMMENDATION: Home with follow-up with orthopedics prior to start of outpatient PT
[2024-12-10 10:46] VITALS: BP 115/84; PULSE 58; RESP 16; TEMP 36.2; O2SAT 94
--- NOTE | 2024-12-10 14:46 | PGE_ITS ---
Date of Service Date of service: 12/10/24 Time of Service: 15:35 Assessment and Plan Assessment and plan (1) Closed traumatic fracture of ribs of left side with pneumothorax: Status: Acute Assessment and plan: left pneumothorax smaller, improved today. Safe to proceed with positive pressure ventilation for ORIF of clavicle tomorrow as long as morning CXR stable. Check CXR after surgery to ensure ptx stable. rib fractures and clavicle fractures, IS and adequate analgesia are bonds. He is doing well, small effusion and atelectasis but no sign of developing pneumonia. L patellar fracture - nondisplaced. Hinged knee brace while ambulating. Sling to L arm. Continue PT lovenox dvt ppx on hold tonight and in AM for ORIF. NPO after midnight. (2) Closed left clavicular fracture: Status: Acute (3) Fracture of left first rib: Status: Acute (4) Fracture of left fifth rib: Status: Acute (5) Fracture of left sixth rib: Status: Acute (6) Fracture of left fourth rib: Status: Acute Subjective Subjective Interval history since last seen: No complaints. feels knocking and crinkling when lays supine. A poking sensation within the left chest when he lays flat. sore in the AM especially. meds adequate for pain relief. Discussed plan for surgery tomorrow, NPO after midnight and holding lovenox. Exam Narrative Exam Narrative: upright in chair, NAD Normal resp effort eomi, MMM. right eye bells palsy L clavicle subcut swelling, no tenting. Arm in sling L knee immobilizer in place Objective Last Vital Signs Temp 97.2 F L 12/10/24 10:46 Pulse 58 L 12/10/24 10:46 Resp 16 12/10/24 10:46 BP 115/84 12/10/24 10:46 Pulse Ox 94 12/10/24 10:46 Laboratory Results - last 24 hr 12/10/24 06:20 WBC 4.97 RBC 4.22 L Hgb 12.6 L Hct 37.1 L MCV 88 MCH 29.9 MCHC 34.0 RDW 11.7 L Plt Count 195 MPV 8.3 Sodium 139 Potassium 4.1 Chloride 106 Carbon Dioxide 29.6 Anion Gap 3.4 BUN 19 H Creatinine 1.1 Est GFR (CKD-EPI 2021) 82.29 Glucose 102 Calcium 9.1 Objective Narrative Objective Narrative: reviewed CXR images and report/ improved left pneumothrax. PAWSS Have you Been Recently Intoxicated or Drunk Within the Last 30 days?: No Have you Ever Experienced Previous Episodes of Alcohol Withdrawal?: No Have you ever Experienced Withdrawal Seizures?: No Have you ever Experienced Delirium Tremens(DT)s?: No Have you ever undergone Alcohol Rehabilitation Treatment (i.e, inpt ot outpatient treatment programs)?: No Have you ever Experienced Blackouts?: No Have you ever Combined Alcohol with other Downers within the last 90 days?: No Have you ever Combined Alcohol with any other Substance of Abuse during the last 90 days?: No Positive Blood Alcohol level on Presentation? [PCS.BAL]: No Evidence of Increased Autonomic Activity (i.e. HR>120, tremor, sweating, agitation, nausea)?: No Result: 0 Time Spent with Patient Time Spent with Patient: 25-34 minutes Time was spent: preparing to see the patient(eg.review tests), ordering medications,tests, procedures, referring, communicating with other health nonfarm animal caretaker, indepentently interpreting results and counseling the patient
[2024-12-10] MEDS: Polyethylene Glycol 3350 17 GM PACKET (20:16)
[2024-12-10 21:17] VITALS: BP 125/65; PULSE 54; RESP 18; TEMP 36.6; O2SAT 94
[2024-12-10 23:00] VITALS: BP 114/75; PULSE 60; RESP 16; O2SAT 96
[2024-12-11] VITALS (75 sets, daily range): BP systolic 83–147; BP diastolic 45–115; PULSE 49–86; RESP 11–29; TEMP 36–37.2; O2SAT 88–100; BMI 25.0
[2024-12-11] MEDS: HYDROcodone 5/Acetaminophen 325 TAB PO (06:41)
[2024-12-11] MEDS: Ibuprofen 800 MG TAB PO ×2 (07:30→18:48)
[2024-12-11] MEDS: Docusate Sodium 100 MG CAP PO ×2 (07:30→20:16)
[2024-12-11] MEDS: Milk of Magnesia 30 ML CUP PO (07:30)
[2024-12-11] MEDS: Polyethylene Glycol 3350 17 GM PACKET PO (07:31)
--- NOTE | 2024-12-11 08:10 | DI.RAD_ITS ---
Exam(s) XR CHEST 2V PA LATERAL EXAM: XR CHEST 2V PA LATERAL CLINICAL HISTORY: Pneumothorax follow up before surgery today TECHNIQUE: 2D digital imaging was performed. Two views. COMPARISON: CR XR CHEST 2V PA LATERAL from 12/10/2024 FINDINGS: HEART: Normal size. Aorta: Not dilated. PULMONARY VASCULATURE: Normal. MEDIASTINUM: Unremarkable. LUNGS: Medial left basilar atelectasis remains present. PLEURAL SPACE: Small left pleural effusion, unchanged. No pneumothorax is visible. BONE:Unremarkable for age. SOFT TISSUES: Unremarkable. IMPRESSION: No visible pneumothorax. Small left pleural effusion and left basilar atelectasis persist. DATA REPOSITORY: RADIATION DOSE DELIVERED:
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
--- NOTE | 2024-12-11 11:25 | ROE_ITS ---
Operative Note Operative Note PRE-OP DIAGNOSIS: Left displaced midshaft clavicle fracture PROCEDURE: Left clavicle open reduction internal fixation, CPT #94237 SURGEON: Robby Brambila INFORMATION SYSTEMS OPERATOR: Kelly Hobbs ANESTHESIA TYPE: Local By Surgeon, General LMA/ETT and Primary Nerve Block Refer to Anesthesia Record ESTIMATED BLOOD LOSS: 10 Patient was transported to: PACU Implants: Synthes 2.7mm VA LCP clavicle plate system Left LC2 plate with 1x medial & lateral 2.7mm cortex screws and 4x medial & lateral 2.7mm locking screws 2x 2.7mm anterior to posterior lag screws Indications: Please see complete medical record for details. Procedure Description: In the operating room, general anesthesia was induced. The patient was positioned supine on the operating room table. All bony prominences were well- padded. Preoperative antibiotics were administered. The clavicle was prepped and draped in the usual sterile fashion. The correct patient, procedure, and side of the procedure were all verified prior to incision. Fluoroscopy was used to confirm as well as the patient's vital signs and status of there was no pneumothorax from induction of anesthesia. The planned incision was pre-injected with local anesthetic containing epinephrine. The fracture site was approached raising full-thickness flaps down to bone. The incision was extended medially laterally as necessary. Care was taken to preserve soft tissue attachments. The fracture ends were identified. There were 2 large intercalary segments and interposed muscle and soft tissue, which was removed. Bone clamps were then used to reduce the largest posterior fragment to the medial clavicle and then secured nicely with a 2.7 mm anterior to posterior lag screw. The anterior bone fragment was then reduced to the lateral clavicle and similarly secured with another 2.7 mm anterior posterior lag screw. Bone forceps were used to provisionally obtain reduction between the combined medial and lateral segments. An appropriate precontoured superior plate was applied and position to best fit the fracture and accommodate patient anatomy. It was compressed to bone with a cortex screw medially and then laterally. The overall reduction was excellent, but there was a slight gap anteriorly or superiorly so an additional cortex screw just lateral to the fracture was drilled eccentrically in the plate, the lateral compression screw already in place loosened, and a unicortical screw placed in this new position with compression nicely achieved with seating of the screw guide in place with a pointed bone clamp. The other compression screw was retightened. The 4 medial and then lateral locking screw holes were then drilled bicortically and then filled. The medialmost screw hole was directed away from the construct and a couple millimeter subtracted to ensure it was not prominent. The plate and fractures were all inspected and demonstrated excellent stability and fixation strength. AP, cephalic tilt, and [id number] fluoroscopy confirmed appropriate fracture reduction and hardware placement. Lastly, chest x-ray including the left apical lung area did not show any recurrent pneumothorax. The wound was copiously irrigated with normal saline. Deep and subcutaneous tissue was closed in a full-thickness watertight fashion with buried interrupted 2-0 Monocryl. Subcuticular layer was closed using running 3-0 Monocryl. Skin glue was applied over the incision followed by a Mepilex Band-Aid. The patient awoke from anesthesia without complication and was transferred to the recovery room in a stable condition. Date of Procedure: 12/11/24
[2024-12-11] MEDS: Lactated Ringers 1,000 ML 30 ML IV ×2 (11:30→15:04)
[2024-12-11] MEDS: ceFAZolin 2 GM/50 ML BAG 100 GM (12:05)
[2024-12-11] MEDS: TRANEXAMIC ACID/SOD. CHL. 1,000 MG/100 ML BAG 600 MG (12:10)
--- NOTE | 2024-12-11 12:40 | W.ANESNERVE ---
Nerve Block Single Injection Procedure Date and Time Date Performed: 12/11/24 Procedure Start: 11:31 Location Where Procedure Performed Procedure Location: Day Surgery Unit Reason Performed: Postoperative Analgesia Requesting Provider: Robby Brambila Timeout Performed Timeout Performed: Yes Monitoring Used ECG, Blood Pressure, SpO2 and See EMR for corresponding vital signs Sterility Sterility: Hand Hygiene, Surgical Mask, Sterile Gloves, Sterile Drape/Sheet, Sterile Gown and Chlorhexidine Sedation Given During Procedure Sedation Given (Indicate Dose Given): Versed IV Dose:: 2ml Patient Mental Status Patient Mental Status: Sedate with meaningful communication Nerve Block 1st Nerve Block: Laterality: Left Block Type: Interscalene Ultrasound Image Saved?: Yes Needle / Catheter Used: 100mm SonoPlex II Local Anesthetic Bolus (Indicate Dose Given): Lidocaine used for local infiltration of skin, Bupivacaine 0.25% Dose:: 10ml and Exparel Dose:: 10ml Additives (Indicate Dose Given): None Ultrasound: Sterile probe cover and gel used Nerve Stimulator: Supplement to Ultrasound use Paresthesia: None Procedure Tolerated: No Complications and Patient tolerated well Procedure Outcome: Successful Performed By: Gabby Barajas Supervised By: Linda Santoro 2nd Nerve Block: Laterality: Left Block Type: Superficial Cervical Plexus Ultrasound Image Saved?: Yes Needle / Catheter Used: 100mm SonoPlex II Local Anesthetic Bolus (Indicate Dose Given): Lidocaine used for local infiltration of skin and Bupivacaine 0.5% Dose:: 10ml Additives (Indicate Dose Given): None Ultrasound: Sterile probe cover and gel used Nerve Stimulator: Supplement to Ultrasound use Paresthesia: None Procedure Tolerated: No Complications and Patient tolerated well Procedure Outcome: Successful Performed By: Gabby Barajas Supervised By: Linda Santoro
[2024-12-11] MEDS: Bupivacaine 0.25% Pres-Free W/EPI 30 ML VIAL (12:44)
--- NOTE | 2024-12-11 13:49 | DI.RAD_ITS ---
Exam(s) XR CLAVICLE LT LIMITED 1V EXAM: XR CLAVICLE LT LIMITED 1V CLINICAL HISTORY: left clavicle fracture. TECHNIQUE: 2D and realtime digital imaging was performed. COMPARISON: CR XR CHEST 2V PA LATERAL from 12/11/2024 FINDINGS: Hard copy images show placement of a fixation plate across the clavicle fracture. Alignment appears anatomic. Please see procedure note for details. Fluoro time: 11seconds RADIATION DOSE DELIVERED: candie Weeks=0.97 mGy
--- NOTE | 2024-12-11 14:23 | W.PM.PROGNOT ---
Date of Service Date of service: 12/11/24 Time of Service: 14:44 Assessment and Plan Assessment and plan (1) Closed left clavicular fracture: Status: Acute Assessment and plan: 49-year-old male postop day #0 status post Left clavicle ORIF 12/31 Still waking up in PACU. Feeling reasonably okay but a bit nauseous and uncomfortable about the ribs. Vital signs stable. 2+ left radial pulse readily palpable. Orders placed- Complete 24 hours postoperative antibiotics Probiotic Resume regular diet Per general surgery- Continue multimodal pain control May resume chemical DVT prophylaxis tomorrow assuming hemodynamically stable Continue mechanical DVT prophylaxis with SCDs and/or GERRI hose Discharge when appropriate DISCHARGE INSTRUCTIONS (please update / copy into discharge document) Surgery: Left clavicle ORIF 12/31. Left patella fracture 12/2024. Activity: Left upper extremity sling for support when ambulatory or out of the home. Otherwise, may rest forearm on pillows. Encourage gently increasing shoulder range of motion. Maintain range of motion about the elbow, wrist, and hand prevent stiffness. Light and use of the hand and fingers for ADLs okay. Weightbearing as tolerated left knee. Use hinged knee wrap/brace for support when ambulatory. May remove when seated or resting. Avoid deep flexion past 90 degrees. Prescriptions per general surgery Dressings: Leave Mepilex Band-Aid in place until follow-up. Keep clean and dry at all times. Follow-up: About [address] Brambila Please call [facility] during business hours with any questions or concerns. (2) Left patella fracture: Status: Acute Assessment and plan: Left small transverse nondisplaced patella fracture 12/07/2024 Nonoperative management, as above Relatively small, transverse, and nondisplaced left lateral patella fracture- Stable. Correlates with area of swelling and tenderness. Should be relatively protected. Weightbearing as tolerated okay with assist device as needed. Has met with PT regarding this injury. Wearing hinged knee wrap/brace. Will continue to wear for support while ambulatory. Range of motion 0-90 degrees. Avoid deeper flexion. Expect healing in about 6 weeks. Surgery if displaces or becomes symptomatic nonunion. Objective Last Vital Signs Temp 99.0 F 12/11/24 11:31 Pulse 68 12/11/24 11:31 Resp 18 12/11/24 11:31 BP 147/82 H 12/11/24 11:31 Pulse Ox 97 12/11/24 11:31 PAWSS Have you Been Recently Intoxicated or Drunk Within the Last 30 days?: No Have you Ever Experienced Previous Episodes of Alcohol Withdrawal?: No Have you ever Experienced Withdrawal Seizures?: No Have you ever Experienced Delirium Tremens(DT)s?: No Have you ever undergone Alcohol Rehabilitation Treatment (i.e, inpt ot outpatient treatment programs)?: No Have you ever Experienced Blackouts?: No Have you ever Combined Alcohol with other Downers within the last 90 days?: No Have you ever Combined Alcohol with any other Substance of Abuse during the last 90 days?: No Positive Blood Alcohol level on Presentation? [PCS.BAL]: No Evidence of Increased Autonomic Activity (i.e. HR>120, tremor, sweating, agitation, nausea)?: No Result: 0 Time Spent with Patient Time Spent with Patient: <25 minutes Time was spent: referring, communicating with other health medicare compliance auditor
[2024-12-11] MEDS: Droperidol 5 MG/2 ML VIAL 0.625 MG IVP ×2 (14:32→14:45)
[2024-12-11] MEDS: Ondansetron 4 MG/2 ML VIAL IVP (15:03)
--- NOTE | 2024-12-11 15:47 | W.ANESPOSTOP ---
Postoperative Evaluation Date, Time and Location Date Performed: 12/11/24 Time Performed: 15:47 Patient Location: PACU Vital Signs Most Recent Imported Vital Signs: Most Recent Vital Signs Temp Pulse Resp BP Pulse Ox 36.9 C 58 L 17 103/67 96 12/11/24 15:42 12/11/24 15:45 12/11/24 15:45 12/11/24 15:42 12/11/24 15:45 Pain Score Most Recent Pain Score: Most Recent Pain Score Pain Level 0 12/11/24 15:38 Assessment Mental Status: Awake (Alert & Oriented to Patient Baseline) Airway and Respiratory Function: Abnormal Respiratory exam (See explanation) (3lpm via N/C. patient remains with higher than expected O2 needs. I have ordered a CXR which has been taken, waiting on read for suspected pneumothorax. ) and Patient has been admitted and is receiving care as an inpatient Cardiovascular Function: Hemodynamically Stable Hydration Status: Adequately Hydrated Nausea & Vomiting: Active Nausea or Vomiting Present Nausea and Vomiting Management: Nausea and vomiting active, being addressed with medication and Nausea and vomiting active, being managed as an inpatient Pain: Pt. Denies Any Pain Peripheral Nerve Block: Regional nerve block not resolved at time of post operative discharge
--- NOTE | 2024-12-11 15:57 | DI.RAD_ITS ---
Exam(s) XR PORTABLE CHEST AP EXAM: XR PORTABLE CHEST AP CLINICAL HISTORY: PACU, increased O2 need. TECHNIQUE: 2D digital imaging was performed of the chest. Two images were obtained. AP views were obtained. COMPARISON: CR XR CHEST 2V PA LATERAL from 12/10/2024 CR XR CHEST 2V PA LATERAL from 12/11/2024 FINDINGS: MEDIASTINUM: Normal. HEART: Normal. PULMONARY VASCULATURE: Normal. LUNGS: Worsening opacity in the left lung base with air bronchograms present. PLEURAL SPACE: There does appear to be a persistent tiny left apical pneumothorax. There is blunting of the left costophrenic angle suggesting a left pleural effusion. The right lung is clear. No right pneumothorax or right pleural effusion is present. BONE:Within normal limits for the patient's age. There is again seen a sideplate and screws transfixing the comminuted left clavicular fracture. There again seen several displaced left rib fractures. OTHER FINDINGS:Normal. IMPRESSION: 1. Worsening left lower lobe opacity. This may represent worsening atelectasis. Pneumonia should also be considered. 2. Left pleural effusion. 3. Persistent tiny left apical pneumothorax. DATA REPOSITORY: RADIATION DOSE DELIVERED:
--- NOTE | 2024-12-11 16:21 | PDOC.CMPRO ---
Date of service: 12/11/24 Time of Service: 16:21 Care Management Progress Note Progress Note Text Progress Note Text: Raul went to the OR today for a left clavicle open reduction internal fixation. As of this time, he has not returned from the PACU, and CM was unable to meet with him today. Discharge Potential Discharge Needs: PCP F/U Appt and Surgical F/U Appt (ortho) Anticipated Barriers to Discharge: None Identified Patient/Family Education Needs: Review discharge instructions, discuss Ask Me Three Transportation: Private vehicle Plan: Anticipate, Raul will discharge home via private vehicle with family once medically cleared. He will follow up with his PCP and with the orthopedic surgeon and continue per his discharge plan of care. Recommendation is outpatient Orthopedics follow up prior to the initiation of outpatient PT services. 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 CM will follow. Social Determinants of Health Screening Will the Patient Participate in the Screening?: Declined to provide Do you worry about having a steady place to live?: choose not to answer
[2024-12-11] MEDS: ceFAZolin 1 GM/50 ML BAG IVPB ×2 (17:11→23:55)
[2024-12-11] MEDS: Normal Saline Flush 10 ML SYR IVP ×2 (17:12→23:55)
[2024-12-11] MEDS: MORPHine 2 MG/ML SYR IVP ×2 (18:47→21:51)
[2024-12-11] MEDS: oxyCODONE 5 MG TAB PO (20:15)
[2024-12-11] MEDS: Lidocaine 5% Patch 3 PATCH TP (20:16)
[2024-12-11] MEDS: Acetaminophen 500 MG TAB 1000 MG PO (20:25)
[2024-12-11] MEDS: ALPRAZolam 0.25 MG TAB PO (21:50)
[2024-12-12] MEDS: oxyCODONE 5 MG TAB PO ×4 (00:59→15:00)
[2024-12-12 01:02] VITALS: BP 112/70; PULSE 56; RESP 16; TEMP 36.3; O2SAT 93
[2024-12-12] MEDS: Acetaminophen 500 MG TAB 1000 MG PO ×3 (04:29→15:52)
[2024-12-12] MEDS: MORPHine 2 MG/ML SYR IVP ×2 (04:33→07:31)
[2024-12-12] MEDS: Normal Saline Flush 10 ML SYR IVP ×2 (04:34→08:29)
[2024-12-12] MEDS: Polyethylene Glycol 3350 17 GM PACKET PO ×2 (04:37→15:52)
[2024-12-12 05:26] VITALS: BP 112/68; PULSE 55; RESP 18; TEMP 36.2; O2SAT 94
[2024-12-12] MEDS: ceFAZolin 1 GM/50 ML BAG IVPB (08:25)
[2024-12-12] MEDS: Lactobacillus Acidophilus CAP 1 CAP PO (08:26)
[2024-12-12] MEDS: Ibuprofen 800 MG TAB PO ×2 (08:28→15:00)
[2024-12-12] MEDS: Docusate Sodium 100 MG CAP PO (08:29)
--- NOTE | 2024-12-12 08:30 | DI.RAD_ITS ---
Exam(s) XR PORTABLE CHEST AP EXAM: XR PORTABLE CHEST AP CLINICAL HISTORY: pneumothorax TECHNIQUE: 2D digital imaging was performed. COMPARISON: CR XR CHEST 2V PA LATERAL from 12/10/2024 CR XR CHEST 2V PA LATERAL from 12/11/2024 CR XR PORTABLE CHEST AP from 12/11/2024 FINDINGS: LUNGS: A dense opacity is again noted at the medial left lung base, severe atelectasis versus pneumonia. Small left pleural effusion is stable. A tiny left pneumothorax remains present. HEART: Normal size. AORTA: Normal diameter. BONES: Fixation plate along left clavicle and multiple left rib fractures again noted. Soft tissues: Unremarkable. IMPRESSION: Stable appearance of left lower lobe atelectasis versus pneumonia and small left pleural effusion. Stable tiny left apical pneumothorax. The preliminary [facility] report was reviewed. DATA REPOSITORY: RADIATION DOSE DELIVERED:
[2024-12-12 08:59] VITALS: BP 126/83; PULSE 60; RESP 16; TEMP 37.5; O2SAT 96
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
[2024-12-12] MEDS: Milk of Magnesia 30 ML CUP PO (10:10)
[2024-12-12] MEDS: Heparin 5,000 UNITS/ML VIAL 5000 UNITS SC (10:11)
[2024-12-12] MEDS: Lidocaine Patch Removal 3 EACH TP (10:34)
[2024-12-12 16:20] VITALS: BP 133/77; PULSE 68; RESP 16; TEMP 36.6; O2SAT 96
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
--- NOTE | 2024-12-12 18:29 | PDOC.CMDIS ---
Date of service: 12/12/24 Time of Service: 18:29 LACE Index Scoring Tool Questions: Length of Stay (in days): 4 - 6 Was the patient admitted via the E.D.?: Yes E.D. Visits: 0 Answers: Total Score: 7 Risk of Readmission: Low Risk Care Management Discharge Plan Reason for Hospitalization: polytrauma Discharge Plan: Raul returned home today with no new services. He was transported home via private vehicle by family. He will follow up with surgical services and his discharge plan of care. He was happy to be going home. Patient/Family Education Needs: Review discharge instructions and limitations, discussion of self care needs including ask me three.
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
--- NOTE | 2024-12-22 06:39 | NUR.NOTE ---
Accessed Pt chart to print the discharge note to submit to [facility]
== END 2024-12-12 19:02 | disposition home or self-care (01) | DRG 516 ==
LOC: ER 17:21 → MS 12-08 07:53
PROVIDERS: Student in an Organized Health Care Education/Training Program; Admitting Provider Surgery; Emergency Provider General Practice; PCP Nurse Practitioner Family; Visit Provider Surgery
PROC: 0PSB04Z Reposition Left Clavicle with Internal Fixation Device, Open Approach (ICD-10-PCS; CPT 23515; principal; 2024-12-11 12:00)
DX: S42.022A Displaced fracture of shaft of left clavicle, initial encounter for closed fracture (principal); S22.42XA Multiple fractures of ribs, left side, initial encounter for closed fracture; S27.0XXA Traumatic pneumothorax, initial encounter; S82.035A Nondisplaced transverse fracture of left patella, initial encounter for closed fracture; V19.9XXA Pedal cyclist (driver) (passenger) injured in unspecified traffic accident, initial encounter; G89.18 Other acute postprocedural pain; S09.8XXA Other specified injuries of head, initial encounter; R09.02 Hypoxemia; G51.0 Bell's palsy; R11.0 Nausea
CPT/HCPCS: 23515; 36415; 64415; 64450; 71275; 76000; 80048; 80053; 83690; 85027; 86850; 86900; 86901; 96365; 96375; 96376; 97110; 97116; 97162; 97530; 99285; J1650; 70450; 71045; 71046; 72125; 73000; 73030; 73560; 74174; 81003; 83605; 83735; 85025; 85610; 85730; 94760; J0131; J0665; J0666; J0690; J1100; J1171; J1644; J1790; J1885; J2003; J2250; J2270; J2405; J2704; J3490

== ENCOUNTER 2024-12-22 13:41 | Outpatient (CLI) | payer BC, SELFPAY ==
--- NOTE | 2024-12-22 11:15 | DI.RAD_ITS ---
Exam(s) XR CLAVICLE LT EXAM: XR CLAVICLE LT CLINICAL HISTORY: F/U FRACTURE TECHNIQUE: 2D digital imaging was performed of the left clavicle. Two images were obtained. AP and axial views were obtained. COMPARISON: CR XR CLAVICLE LT from 12/08/2024 FINDINGS: BONES: There has been interval placement of a sideplate and screws transfixing the comminuted fracture of the midshaft of the left clavicle. The alignment of the clavicles anatomic. There is again seen a displaced fracture of the lateral aspect of the left 4th rib. No bony destructive lesion is seen. JOINTS: No dislocation present. There are mild degenerative changes seen at the acromioclavicular joint. SOFT TISSUE: Normal. IMPRESSION: Successful reduction and internal fixation of the left clavicular fracture. DATA REPOSITORY: RADIATION DOSE DELIVERED:
--- NOTE | 2024-12-22 11:15 | DI.RAD_ITS ---
Exam(s) XR KNEE LT 3V AP,LAT,SUZETTE EXAM: XR KNEE LT 3V AP,LAT,SUZETTE CLINICAL HISTORY: F/U FRACTURE. TECHNIQUE: 2D digital imaging was performed of the left knee. Three images were obtained. Merchant,AP and lateral views were obtained. COMPARISON: CR XR KNEE LT 1V from 12/09/2024 CR XR KNEE LT 2V AP,LAT from 12/09/2024 CR XR CHEST 2V PA LATERAL from 12/11/2024 FINDINGS: BONES: There has been no change in alignment of the nondisplaced patellar fracture. No bony destructive lesion is seen. JOINTS: The knee is normally aligned. There is a small joint effusion. No loose body. SOFT TISSUE: Normal. IMPRESSION: Stable alignment of the patellar fracture. DATA REPOSITORY: RADIATION DOSE DELIVERED:
== END 2024-12-22 13:42 | disposition home or self-care (01) ==
LOC: DIORS 13:41
PROVIDERS: PCP Nurse Practitioner Family; Visit Provider Student in an Organized Health Care Education/Training Program
DX: S42.002A Fracture of unspecified part of left clavicle, initial encounter for closed fracture (principal); S82.002A Unspecified fracture of left patella, initial encounter for closed fracture
CPT/HCPCS: 73562; 73000

== ENCOUNTER 2025-01-20 14:04 | Outpatient (CLI) | payer BC, SELFPAY ==
--- NOTE | 2025-01-20 10:45 | DI.RAD_ITS ---
Exam(s) XR SHOULDER RT COMPLETE 2+V EXAM: XR SHOULDER RT COMPLETE 2+V CLINICAL HISTORY: RIGHT SHOULDER PAIN. TECHNIQUE: 2D digital imaging was performed of the right shoulder. Two images were obtained. Grashey and axillary views were obtained. COMPARISON: CR XR SHOULDER RT COMPLETE 2+V from 08/20/2023 FINDINGS: BONES: No acute fracture is present. No bony destructive lesion is seen. JOINTS: No dislocation present. There are stable degenerative changes seen at the acromioclavicular joint. The glenohumeral joint is well maintained. SOFT TISSUE: Normal. IMPRESSION: 1. No acute abnormality. 2. Stable degenerative changes of the AC joint. DATA REPOSITORY: RADIATION DOSE DELIVERED:
--- NOTE | 2025-01-20 10:45 | DI.RAD_ITS ---
Exam(s) XR CLAVICLE LT EXAM: XR CLAVICLE LT CLINICAL HISTORY: F/U FRACTURE TECHNIQUE: 2D digital imaging was performed of the left clavicle. Two images were obtained. AP and axial views were obtained. COMPARISON: CR XR CLAVICLE LT from 12/22/2024 FINDINGS: BONES: There is again seen a sideplate and screws transfixing the fracture of the midshaft of the left clavicle. There is no change in alignment of the orthopedic hardware or fracture components. Fracture lines are still well visualized. No bony destructive lesion is seen. JOINTS: No dislocation present. SOFT TISSUE: Normal. IMPRESSION: Stable alignment of the left clavicular fracture and orthopedic hardware. DATA REPOSITORY: RADIATION DOSE DELIVERED:
--- NOTE | 2025-01-20 10:45 | DI.RAD_ITS ---
Exam(s) XR KNEE LT 1V EXAM: XR KNEE LT 1V CLINICAL HISTORY: F/U FRACTURE. TECHNIQUE: 2D digital imaging was performed of the left knee. One images were obtained. Merchant, views were obtained. COMPARISON: CR XR KNEE LT 1V from 12/09/2024 CR XR KNEE LT 2V AP,LAT from 12/09/2024 FINDINGS: There has been no change in alignment of the nondisplaced lateral patellar fracture. There is soft tissue swelling anterior to the patella. IMPRESSION: Stable alignment of the patellar fracture. DATA REPOSITORY: RADIATION DOSE DELIVERED:
== END 2025-01-20 14:05 | disposition home or self-care (01) ==
LOC: DIORS 14:04
PROVIDERS: PCP Nurse Practitioner Family; Visit Provider Student in an Organized Health Care Education/Training Program
DX: S42.002A Fracture of unspecified part of left clavicle, initial encounter for closed fracture (principal); S82.002A Unspecified fracture of left patella, initial encounter for closed fracture; M75.101 Unspecified rotator cuff tear or rupture of right shoulder, not specified as traumatic
CPT/HCPCS: 73000; 73030; 73560

== ENCOUNTER 2025-02-24 16:12 | Outpatient (REF) | payer BC, SELFPAY ==
[2025-02-24 20:44] LABS: Cholesterol 220 mg/dL (<200); HDL Cholesterol 84 mg/dL (>40)
== END 2025-02-24 16:13 | disposition home or self-care (01) ==
LOC: LBN 16:12
PROVIDERS: PCP Nurse Practitioner Family; Visit Provider Nurse Practitioner Family
DX: Z13.220 Encounter for screening for lipoid disorders (principal)
CPT/HCPCS: 80061

== ENCOUNTER 2025-03-03 11:56 | Outpatient (CLI) | payer BC, SELFPAY ==
--- NOTE | 2025-03-03 09:30 | DI.RAD_ITS ---
Exam(s) XR KNEE LT 1V EXAM: XR KNEE LT 1V CLINICAL HISTORY: F/U FRACTURE. TECHNIQUE: 2D digital imaging was performed of the left knee. One images were obtained. Merchant, views were obtained. COMPARISON: CR XR KNEE LT 1V from 01/20/2025 FINDINGS: A single merchant's view is obtained. There has been no change in alignment of the fracture involving the lateral aspect of the patella. No new fracture is seen. There is decrease in the soft tissue swelling over the patella. IMPRESSION: Stable alignment of the patellar fracture. DATA REPOSITORY: RADIATION DOSE DELIVERED:
--- NOTE | 2025-03-03 09:30 | DI.RAD_ITS ---
Exam(s) XR CLAVICLE LT EXAM: XR CLAVICLE LT CLINICAL HISTORY: F/U FRACTURE TECHNIQUE: 2D digital imaging was performed of the left clavicle. Two images were obtained. AP and axial views were obtained. COMPARISON: CR XR CLAVICLE LT from 01/20/2025 FINDINGS: BONES: There is no change in alignment of the left clavicular fracture orthopedic hardware. The fracture lines are still visualized. There is no new fracture. The fracture of the lateral aspect of the 4th rib is again seen. No bony destructive lesion is seen. JOINTS: No dislocation present. Degenerative changes are seen at the acromioclavicular joint. SOFT TISSUE: Normal. IMPRESSION: Stable alignment of the left clavicular fracture and the orthopedic hardware. DATA REPOSITORY: RADIATION DOSE DELIVERED:
== END 2025-03-03 11:57 | disposition home or self-care (01) ==
LOC: DIORS 11:56
PROVIDERS: PCP Nurse Practitioner Family; Visit Provider Student in an Organized Health Care Education/Training Program
DX: S82.035D Nondisplaced transverse fracture of left patella, subsequent encounter for closed fracture with routine healing (principal); S42.002D Fracture of unspecified part of left clavicle, subsequent encounter for fracture with routine healing; X58.XXXD Exposure to other specified factors, subsequent encounter
CPT/HCPCS: 73000; 73560